=== PATIENT | female | born 1990 | race Two or more races ===

== ENCOUNTER 2016-07-01 10:27 | Emergency (ER) | payer MEDICAID ==
[~2016-07-01] VITALS: Ht 149.9 cm; Wt 68.0 kg
[2016-07-01 10:46] VITALS: BP 101/87
== END 2016-07-01 11:12 | disposition home or self-care (01) ==
LOC: ER 10:41
DX: J32.9 Chronic sinusitis, unspecified (principal); H10.9 Unspecified conjunctivitis; H66.91 Otitis media, unspecified, right ear; I10 Essential (primary) hypertension
CPT/HCPCS: 99283; A4606; Z7610